=== PATIENT | female | born 1955 | race Caucasian/White ===

== ENCOUNTER 2017-02-16 20:32 | Emergency (ER) | payer OTHER ==
[~2017-02-16] VITALS: Ht 167.6 cm; Wt 62.0 kg
[2017-02-16 20:51] VITALS: TEMP 36.7; Ht 167.6 cm; Wt 62.0 kg
[2017-02-16 21:45] LABS: BASO % 0.7 %; BASO ABS # 0.03 K/uL (0-0.2); COMPLETE YES; EOS % 6.8 %; LYMPH % 44.9 %; LYMPH ABS # 1.99 K/uL (1.2-3.4); MEAN CELL VOLUME 90.7 fL (80-100); MONO % 5.4 %; NEUT % 42.2 %; PLATELET COUNT 224 K/uL (130-400); RED BLOOD COUNT 4.41 M/uL (4.2-5.4); WHITE BLOOD COUNT 4.43 K/uL (4.8-10.8)
[2017-02-16 21:50] VITALS: O2SAT 97
[2017-02-16 21:52] LABS: BLOOD UREA NITROGEN 17 mg/dl (7-18); BUN/CREATININE RATIO 18.5 (10-20); CALCIUM 9.2 mg/dl (8.5-10.1); CARBON DIOXIDE 27 mmol/L (21-32); CHLORIDE 105 mmol/L (98-107); CREATININE 0.94 mg/dl (0.60-1.20); GLUCOSE 85 mg/dl (70-99); POTASSIUM 3.9 mmol/L (3.5-5.1); SODIUM 139 mmol/L (136-145)
--- NOTE | 2017-02-16 22:05 | EMERGENCY ROOM VISIT NOTE ---
History Report prepared by Dennis: No Plata Under the Supervision of: Dr. Evan Davis M.D. First contact with patient: 21:29 Chief Complaint: BACK PAIN Stated Complaint: BACK PAIN, CHIN NUMB, ARM TINGLY History of Present Illness The patient is a 61 year old female who presents to the Emergency Room with complaints of persistent back pain starting 2 days ago. The pain is in the middle right side of her back. She currently rates her discomfort as a 6/10 in severity. The pain worsens with breathing. She took Aleve and Excedrin to no significant relief. She did not do any lifting, twist, or injure her back. She denies any leg pain, fever, chills, or cough. She has a family history of [place] and aortic aneurysm. She denies any history of back problems. She is usually active without problems. Last fall, she was getting SOB with climbing stairs. She wore a heart monitor which revealed SVT. She also had a cardiac catheterization which was negative. Source of History: patient Onset: 2 days ago Position: back Symptom Intensity: 6/10 Quality: other (pain) Modifying Factors (Worsening): breathing Associated Symptoms: No fevers, No chills, No cough Note: Pt denies leg pain. Review of Systems All systems have been listed, reviewed, and are negative other than those previously mentioned. Please see Additional Medical History Sheet. Past Medical & Surgical Medical Problems: (1) Bronchitis (2) Heart disease Family History Gallbladder disease Heart disease Hypertension Social History Smoking Status: Never Smoker Alcohol Use: occasionally Occupation Status: employed Current/Historical Medications Scheduled Tkarqrg-Gsywmxpjwbchw-Oxzmmcem (Excedrin Migraine), 2 TABS PO DAILY Cholecalciferol (D-5000), 1 TAB PO DAILY Cyanocobalamin (Vitamin B-12), 2 CAP PO DAILY Dicyclomine Hcl (Bentyl), 2 CAP PO TID Multivitamin (Multivitamin), 2 TAB PO DAILY Naproxen Sodium (Aleve), 440 MG PO BID Allergies Coded Allergies: No Known Allergies (Unverified , 02/16/17) Physical Exam Vital Signs Date Time Temp Pulse Resp B/P (MAP) Pulse Ox O2 Delivery O2 Flow Rate FiO2 02/17/17 00:00 56 16 136/75 97 02/16/17 22:30 55 18 118/75 97 Room Air 02/16/17 22:00 53 17 139/80 97 Room Air 02/16/17 21:50 97 Room Air 02/16/17 21:40 175/88 02/16/17 21:39 167/88 02/16/17 21:33 56 02/16/17 21:31 159/79 02/16/17 20:51 36.7 74 18 173/89 100 Room Air Physical Exam GENERAL: Patient awake, alert, oriented x 3. Patient appears in minimal distress. Patient appears very anxious. Patient follows commands. Patient does not appear toxic. Patient is adequately hydrated and well-nourished. SKIN: No erythema, pallor, cyanosis or rash HEENT: Normal head, pupils equal, reactive to light and accommodation. Oral cavity and posterior pharynx appear normal. Neck: Without adenopathy, no neck vein distention. Thyroid not enlarged, carotids strong and equal. LUNGS: Clear to auscultation. No wheezes, no rales, no rhonchi. HEART: No murmurs. No gallops. No rubs BACK: Reproducible tenderness over the right rhomboid area. ABDOMEN: Soft nontender. No masses, no rebound, no hepatomegaly or splenomegaly. EXTREMITIES: No signs of trauma or infection. NEUROLOGIC: Cranial nerves II-XII within normal limits. No gross motor sensory function deficits. Medical Decision & Procedures ER Provider Diagnostic Interpretation: X ray results are stated below per my interpretation and the radiologist's interpretation. TWO VIEW CHEST CLINICAL HISTORY: Right-sided back pain. FINDINGS: PA and lateral chest radiographs are obtained. No prior studies are available for comparison at the time of dictation. The heart is top normal for projection and there is mild atherosclerotic calcification of the thoracic aorta. The mediastinal contour is within normal limits. There is minimal bibasilar atelectasis. The lungs and pleural spaces are otherwise clear. There is no pneumothorax. The skeletal structures are osteopenic. The bony thorax appears intact. Mild degenerative changes noted throughout the thoracic spine. IMPRESSION: No active disease in the chest. Electronically signed by: Kurtis Johnson M.D. 02/16/2017 10:44 PM Dictated Date/Time: 02/16/2017 10:43 PM Laboratory Results 02/16/17 21:15 Red Blood Count 4.41, Mean Corpuscular Volume 90.7, Mean Corpuscular Hemoglobin 29.0, Mean Corpuscular Hemoglobin Concent 32.0, Mean Platelet Volume 9.0, Neutrophils (%) (Auto) 42.2, Lymphocytes (%) (Auto) 44.9, Monocytes (%) (Auto) 5.4, Eosinophils (%) (Auto) 6.8, Basophils (%) (Auto) 0.7, Neutrophils # (Auto) 1.87, Lymphocytes # (Auto) 1.99, Monocytes # (Auto) 0.24, Eosinophils # (Auto) 0.30, Basophils # (Auto) 0.03 02/16/17 21:15 Test 02/16/17 21:15 White Blood Count 4.43 K/uL (4.8-10.8) Red Blood Count 4.41 M/uL (4.2-5.4) Hemoglobin 12.8 g/dL (12.0-16.0) Hematocrit 40.0 % (37-47) Mean Corpuscular Volume 90.7 fL (80-100) Mean Corpuscular Hemoglobin 29.0 pg (25-34) Mean Corpuscular Hemoglobin Concent 32.0 g/dl (32-36) Platelet Count 224 K/uL (130-400) Mean Platelet Volume 9.0 fL (7.4-10.4) Neutrophils (%) (Auto) 42.2 % Lymphocytes (%) (Auto) 44.9 % Monocytes (%) (Auto) 5.4 % Eosinophils (%) (Auto) 6.8 % Basophils (%) (Auto) 0.7 % Neutrophils # (Auto) 1.87 K/uL (1.4-6.5) Lymphocytes # (Auto) 1.99 K/uL (1.2-3.4) Monocytes # (Auto) 0.24 K/uL (0.11-0.59) Eosinophils # (Auto) 0.30 K/uL (0-0.5) Basophils # (Auto) 0.03 K/uL (0-0.2) RDW Standard Deviation 41.8 fL (36.4-46.3) RDW Coefficient of Variation 12.5 % (11.5-14.5) Immature Granulocyte % (Auto) 0.0 % Immature Granulocyte # (Auto) 0.00 K/uL (0.00-0.02) Anion Gap 7.0 mmol/L (3-11) Est Creatinine Clear Calc Drug Dose 57.3 ml/min Estimated GFR () 74.8 Estimated GFR (Non- 64.6 BUN/Creatinine Ratio 18.5 (10-20) Calcium Level 9.2 mg/dl (8.5-10.1) Troponin I < 0.015 ng/ml (0-0.045) Laboratory results as stated above per my review. Medications Administered Medications (Trade) Dose Ordered Sig/Vannessa Route Start Time Stop Time Status Last Admin Dose Admin Acetaminophen/ Hydrocodone Bitart ([place] 5/325mg Home Pack) 1 homepack UD ONCE PO 02/16/17 23:30 02/16/17 23:33 DC 02/16/17 23:30 1 HOMEPACK ECG Indication: back/shoulder pain Rate (beats per minute): 51 Rhythm: sinus bradycardia Findings: no acute ischemic change, other (sinus arrythmia) ED Course 2129: Past medical records reviewed. The patient was evaluated in room C1B. A complete history and physical examination was performed. 2327: Upon reevaluation, the patient appeared to have improvement of her symptoms. I discussed today's findings with her. She verbalized agreement of the treatment plan. She was discharged home. 2330: Hydrocodone Bitart/Acetaminophen 1 homepack PO. Medical Decision Nurses notes reviewed. Medical history sheet reviewed. Differential diagnosis includes but is not limited to: musculoskeletal strain, myocardial infarction, chest wall pain, pericarditis, myocarditis, aortic emergencies, pulmonary embolism, congestive heart failure, GI causes, and other significant cardiopulmonary disorders. The patient has pain over her right rhomboid musculature. Pain can be reproduced on palpation. Multiple labs, EKG and imaging were obtained to rule out other cardiopulmonary pathology. Please see above. Those tests do not indicate any cardiopulmonary pathology. The patient was given hydrocodone here for pain. Ice was applied. Tomorrow she should start heat. Medication Reconciliation: I attest that I have personally reviewed the patient' s current medication list. Blood pressure Screening: Patient was found to have normal blood pressure on screening and does not require follow up. Impression Primary Impression: Muscle strain Scribe Attestation The scribe's documentation has been prepared under my direction and personally reviewed by me in its entirety. I confirm that the note above accurately reflects all work, treatment, procedures, and medical decision making performed by me. Departure Information Dispostion Home / Self-Care Referrals Pino Holland M.D. (PCP) Patient Instructions My [facility] Additional Instructions Apply ice intermittently to your back over the next 12 hours. Starting tomorrow you should intermittently apply heat. Tonight take 1-2 hydrocodone every 4 hours as needed for pain. Do not drive or operate machinery while taking hydrocodone. Starting tomorrow take one Aleve every 8 hours until pain has resolved. Follow-up with your family physician in 3 days if pain is not resolving.
[2017-02-16] MEDS ORDERED: DICY10CA55 PO (22:06)
[2017-02-16] MEDS ORDERED: CYAN10005 PO (22:08)
[2017-02-16] MEDS ORDERED: CHOLTAB11 PO (22:08)
[2017-02-16] MEDS ORDERED: MULT-506 PO (22:08)
[2017-02-16] MEDS ORDERED: NAPR1CAP12 PO (22:10)
[2017-02-16] MEDS ORDERED: ASPI-390 PO (22:11)
--- NOTE | 2017-02-16 22:45 | DIAGNOSTIC IMAGING REPORT ---
TWO VIEW CHEST CLINICAL HISTORY: Right-sided back pain. FINDINGS: PA and lateral chest radiographs are obtained. No prior studies are available for comparison at the time of dictation. The heart is top normal for projection and there is mild atherosclerotic calcification of the thoracic aorta. The mediastinal contour is within normal limits. There is minimal bibasilar atelectasis. The lungs and pleural spaces are otherwise clear. There is no pneumothorax. The skeletal structures are osteopenic. The bony thorax appears intact. Mild degenerative changes noted throughout the thoracic spine. IMPRESSION: No active disease in the chest. Electronically signed by: Kurtis Johnson M.D. 02/16/2017 10:44 PM Dictated Date/Time: 02/16/2017 10:43 PM
[2017-02-16] MEDS ORDERED: NORCO 5/325MG HOME PACK PO ONE (23:30)
[2017-02-17] VITALS: BP 136/75; PULSE 56; O2SAT 97
== END 2017-02-17 00:06 | disposition home or self-care (01) ==
LOC: C.EDB 20:33 → C.EDC 02-17 00:06
DX: S39.012A Strain of muscle, fascia and tendon of lower back, initial encounter (principal); X58.XXXA Exposure to other specified factors, initial encounter; I51.9 Heart disease, unspecified; Z82.49 Family history of ischemic heart disease and other diseases of the circulatory system; Z79.82 Long term (current) use of aspirin